=== PATIENT | female | born 1985 | race African-American/Black ===

== ENCOUNTER 2017-04-08 09:12 | Emergency (ER) | payer MEDICAID ==
[~2017-04-08] VITALS: Ht 165.1 cm; Wt 72.0 kg
[2017-04-08] MEDS ORDERED: KETOROLAC 60MG/2ML VIAL IM ONE (10:00)
[2017-04-08 10:51] VITALS: BP 130/72
== END 2017-04-08 11:12 | disposition home or self-care (01) ==
LOC: ER 10:46
DX: J03.90 Acute tonsillitis, unspecified (principal); F17.210 Nicotine dependence, cigarettes, uncomplicated
CPT/HCPCS: 96372; 99283; J1885

== ENCOUNTER 2024-04-05 10:11 | Emergency (ER) | payer MEDICAID ==
[~2024-04-05] VITALS: Ht 165.1 cm; Wt 102.1 kg
[2024-04-05 10:26] VITALS: O2SAT 99
[2024-04-05] MEDS: LIDOCAINE 5% PATCH TOP SCH (11:47)
[2024-04-05] MEDS: KETOROLAC 15MG/ML VIAL IM ONE (11:47)
[2024-04-05 11:48] LABS: CLARITY URINE CLOUDY (CLEAR); COLOR URINE DARK YELLOW (YELLOW); GLUCOSE URINE NEGATIVE (NEGATIVE); KETONES URINE 2+ (NEGATIVE); LEUKOCYTE ESTERASE URINE NEGATIVE (NEGATIVE); NITRITE URINE NEGATIVE (NEGATIVE); OCCULT BLOOD URINE TRACE (NEGATIVE); PH URINE 5.5 (4.5-8.0); PROTEIN URINE 3+ (NEGATIVE); SPECIFIC GRAVITY URINE 1.027 (1.005-1.030)
[2024-04-05 12:00] LABS: BACTERIA URINE TRACE; RBC URINE 0-2 /hpf (0-2); SQUAMOUS EPITHELIAL CELL URINE 2+ /lpf (RARE/1+); YEAST URINE NONE SEEN
[2024-04-05 12:30] VITALS: BP 122/68; PULSE 79; RESP 16; TEMP 98.7
[2024-04-05] MEDS ORDERED: CYCL5TAB MT (12:39)
[2024-04-05] MEDS ORDERED: LIDO700A15 TP (12:39)
[2024-04-05] MEDS ORDERED: NAPR-1176 MT (12:40)
== END 2024-04-05 12:52 | disposition home or self-care (01) ==
LOC: ER 10:11
DX: B34.9 Viral infection, unspecified (principal); M54.50 Low back pain, unspecified; J45.909 Unspecified asthma, uncomplicated; Z98.890 Other specified postprocedural states
CPT/HCPCS: 81003; 81025; 87430; 87070; 96372; 99283; J1885; Z7610